=== PATIENT | male | born 1980 | race Hispanic/Latino ===

== ENCOUNTER 2018-09-15 09:43 | Emergency (ER) | payer SELFPAY ==
--- NOTE | 2018-09-15 10:34 | RAD REPORT ---
EXAM DESCRIPTION: RAD - Chest Single View - 09/15/2018 10:25 am CLINICAL HISTORY: Chest pain radiating to the left arm COMPARISON: None. TECHNIQUE: AP portable chest image was obtained 1017 hours . FINDINGS: Lungs are clear. Heart and vasculature are normal. No measurable pleural effusion and no p neumothorax. No acute bony abnormality seen. No acute aortic findings suspected. IMPRESSION: No acute cardiopulmonary process.
[2018-09-15 10:44] LABS: Absolute Lymphocytes (CBC) 1.7 K/uL (0.7-4.9); Basophils % 0.9 % (0-1.3); Eosinophils % 0.8 % (0-4.4); Hematocrit 51.9 % (39.6-49.0); Lymphocytes % 25.2 % (15.3-44.8); MPV 9.8 fL (7.6-11.3); Monocytes % 7.4 % (3.3-12.3); RBC Red Blood Cell Count 5.82 M/uL (4.33-5.43)
[2018-09-15 11:15] LABS: BUN Blood Urea Nitrogen 14 mg/dL (7-18); Bicarbonate 25 mmol/L (21-32); Glucose Level 106 mg/dL (74-106); NT PRO-BNP 17 pg/mL (<125); Potassium 3.7 mmol/L (3.5-5.1); Sodium Level 141 mmol/L (136-145); Troponin (Emerg Dept Use Only) < 0.02 ng/mL (0.0-0.045)
--- NOTE | 2018-09-15 11:34 | ER ---
Nurse's Notes [facility] Name: All Damico Age: 38 yrs Sex: Male : 1980 Arrival Date: 09/15/2018 Time: 09:47 Bed 4 Private MD: Ankit Carrizales Diagnosis: Chest pain, unspecified Presentation: 09/15 09:55 Presenting complaint: Patient states: intermittent anxiety and sharp chest pain that ss radiates towards L arm that began 3 days ago. Pt reports that this morning he began vomiting. Transition of care: patient was not received from another setting of care. Onset of symptoms was September 11, 2018. Risk Assessment: Do you want to hurt yourself or someone else? Patient reports no desire to harm self or others. Initial Sepsis Screen: Does the patient meet any 2 criteria? No. Patient's initial sepsis screen is negative. Does the patient have a suspected source of infection? No. Patient's initial sepsis screen is negative. Care prior to arrival: None. 09:55 Method Of Arrival: Ambulatory ss 09:55 Acuity: HANNAH 3 ss Historical: - Allergies: 09:59 No Known Allergies; ss - Home Meds: 09:59 None [Active]; ss - PMHx: 09:59 None; ss - PSHx: 09:59 None; ss - Immunization history:: Adult Immunizations up to date. - Social history:: Smoking status: Patient/guardian denies using tobacco. - Ebola Screening: : Patient denies exposure to infectious person Patient denies travel to an Ebola-affected area in the 21 days before illness onset. - Family history:: not pertinent. - Hospitalizations: : No recent hospitalization is reported. Screenin:05 Abuse screen: Denies threats or abuse. Denies injuries from another. Nutritional sg screening: No deficits noted. Tuberculosis screening: No symptoms or risk factors identified. Never had TB. Fall Risk None identified. Assessment: 10:05 Reassessment: Patient appears in no apparent distress at this time. General: Appears in sg no apparent distress. well groomed, well developed, well nourished, Behavior is calm, cooperative, appropriate for age. Pain: Complains of pain in chest Pain does not radiate. Quality of pain is described as aching. Neuro: Level of Consciousness is awake, alert, obeys commands, Oriented to person, place, time, situation, Estimator Binding are equal bilaterally Moves all extremities. Gait is steady, Speech is normal, Facial symmetry appears normal, Pupils are PERRLA. Cardiovascular: Patient's skin is warm and dry. Pulses are palpable in right radial artery and left radial artery Chest pain is denied. Cardiovascular: Reports chest pain, felt anxious. Respiratory: Airway is patent Respiratory effort is even, unlabored, Respiratory pattern is regular, symmetrical. GI: Abdomen is round non-distended, Reports tolerance of fluids, tolerance of food. : No signs and/or symptoms were reported regarding the genitourinary system. EENT: No signs and/or symptoms were reported regarding the EENT system. Derm: Skin is pink, warm \T\ dry. Musculoskeletal: No signs and/or symptoms reported regarding the musculoskeletal system. 10:53 Reassessment: Patient appears in no apparent distress at this time. Patient is alert, sg oriented x 3, equal unlabored respirations, skin warm/dry/pink. Patient states symptoms have not improved. Vital Signs: 09:59 BP 141 / 101; Pulse 78; Resp 18; Temp 97.8(TE); Pulse Ox 98% on R/A; Weight 97.52 kg; ss Height 6 ft. 2 in. (187.96 cm); Pain 6/10; 10:36 BP 132 / 93; Pulse 71; Resp 17; Pulse Ox 99% on R/A; sg 11:02 BP 120 / 85; Pulse 70; Resp 17; Pulse Ox 99% on R/A; sg 09:59 Body Mass Index 27.60 (97.52 kg, 187.96 cm) Vitals: 10:36 Cardiac Rhythm Assessment Regular Sinus rhythm. ED Course: 09:47 Patient arrived in ED. dl4 09:47 Ankit Carrizales MD is Private Physician. dl4 09:55 Quintin Morgan MD is Attending Physician. rn 09:59 Triage completed. ss 09:59 Arm band placed on right wrist. ss 10:05 Patient has correct armband on for positive identification. Bed in low position. Call sg light in reach. Side rails up X2. quality assurance monitor on. Pulse ox on. NIBP on. Warm blanket given. Head of bed elevated. 10:15 Romeo Escalante, RN is Primary Nurse. sg 10:18 X-ray completed. Portable x-ray completed in exam room. Patient tolerated procedure ml well. 10:28 XRAY Chest (1 view) In Process Unspecified. EDMS 10:30 No provider procedures requiring assistance completed. Initial lab(s) drawn, by me, sg sent to lab. Inserted saline lock: 20 gauge in left antecubital area, using aseptic technique. Blood collected. 11:45 IV discontinued, intact, bleeding controlled, No redness/swelling at site. Pressure sg dressing applied. Administered Medications: No medications were administered Outcome: 11:32 Discharge ordered by . rn 11:45 Discharged to home ambulatory, with family. sg 11:45 Condition: good 11:45 Discharge instructions given to patient, family, Instructed on discharge instructions, follow up and referral plans. medication usage, safety practices, Demonstrated understanding of instructions, follow-up care, Prescriptions given X 0 11:47 Patient left the ED. Signatures: Dispatcher [employer] EDMS Romeo Escalante RN Muriel England Roman, MD MD rn Smirch, Shelby, RN RN ss Luna, David dl4
--- NOTE | 2018-09-15 11:35 | EDPHYS ---
Physician Documentation [facility] Name: All Damico Age: 38 yrs Sex: Male : 1980 Arrival Date: 09/15/2018 Time: 09:47 Bed 4 Private MD: Ankit Carrizales ED Physician Quintin Morgan HPI: 09/15 10:18 This 38 yrs old Male presents to ER via Ambulatory with complaints of Chest rn Pain. 10:18 The patient or guardian reports chest pain that is located primarily in the substernal rn area. The pain does not radiate. Associated signs and symptoms: Pertinent positives: dizziness, headache, Pertinent negatives: abdominal pain, cough, recent travel, shortness of breath, syncope, vomiting. The chest pain is described as a heaviness. Duration: The patient or guardian reports multiple episodes, that are intermittent. Modifying factors: The symptoms are alleviated by nothing. the symptoms are aggravated by nothing. Severity of pain: At its worst the pain was mild in the emergency department the pain has improved. The patient has experienced similar episodes in the past. Reports for last week has been feeling chest pressure/heaviness, intermittent, non-radiating, feels heart throbbing, assoc with dizziness, headache, and fatigue. Reports told has high cholesterol in past, was supposed to f/u but didn't return, doesn't take meds. Had normal heart cath 4-5 years ago. Reports today began around 0600, now resolved. Feels anxious during episodes as well. . Historical: - Allergies: 09:59 No Known Allergies; ss - Home Meds: 09:59 None [Active]; ss - PMHx: 09:59 None; ss - PSHx: 09:59 None; ss - Immunization history:: Adult Immunizations up to date. - Social history:: Smoking status: Patient/guardian denies using tobacco. - Ebola Screening: : Patient denies exposure to infectious person Patient denies travel to an Ebola-affected area in the 21 days before illness onset. - Family history:: not pertinent. - Hospitalizations: : No recent hospitalization is reported. ROS: 10:18 Constitutional: Negative for fever, chills, and weight loss, Eyes: Negative for injury, rn pain, redness, and discharge, Neck: Negative for injury, pain, and swelling, Cardiovascular: Negative for edema, Respiratory: Negative for shortness of breath, cough, wheezing, and pleuritic chest pain, Abdomen/GI: Negative for abdominal pain, nausea, vomiting, diarrhea, and constipation, MS/Extremity: Negative for injury and deformity, Skin: Negative for injury, rash, and discoloration, Neuro: Negative for headache, weakness, numbness, tingling, and seizure. Exam: 10:18 Constitutional: This is a well developed, well nourished patient who is awake, alert, rn and in no acute distress. Head/Face: Normocephalic, atraumatic. Eyes: Pupils equal round and reactive to light, extra-ocular motions intact. Lids and lashes normal. Conjunctiva and sclera are non-icteric and not injected. Cornea within normal limits. Periorbital areas with no swelling, redness, or edema. Cardiovascular: Regular rate and rhythm with a normal S1 and S2. No gallops, murmurs, or rubs. Normal PMI, no JVD. No pulse deficits. Respiratory: Lungs have equal breath sounds bilaterally, clear to auscultation and percussion. No rales, rhonchi or wheezes noted. No increased work of breathing, no retractions or nasal flaring. Abdomen/GI: soft, non-tender MS/ Extremity: Pulses equal, no cyanosis. Neurovascular intact. Full, normal range of motion. Equal circumference. Neuro: Awake and alert, GCS 15, oriented to person, place, time, and situation. Cranial nerves II-XII grossly intact. Motor strength 5/5 in all extremities. Sensory grossly intact. Cerebellar exam normal. Vital Signs: 09:59 BP 141 / 101; Pulse 78; Resp 18; Temp 97.8(TE); Pulse Ox 98% on R/A; Weight 97.52 kg; ss Height 6 ft. 2 in. (187.96 cm); Pain 6/10; 10:36 BP 132 / 93; Pulse 71; Resp 17; Pulse Ox 99% on R/A; sg 11:02 BP 120 / 85; Pulse 70; Resp 17; Pulse Ox 99% on R/A; sg 09:59 Body Mass Index 27.60 (97.52 kg, 187.96 cm) ss MDM: 09:55 Patient medically screened. rn 11:31 Differential diagnosis: acute pericarditis, anxiety, coronary artery disease chest wall rn pain, costochondritis, esophagitis, gastritis, gastroesophageal reflux disease (GERD), pericarditis, pleurisy, pneumonia, pneumothorax, hypertension, hypertensive episodes. Data reviewed: vital signs, nurses notes, lab test result(s), EKG, radiologic studies, plain films. Test interpretation: by ED physician or midlevel provider: plain radiologic studies, CXR negative for acute infiltrate. Counseling: I had a detailed discussion with the patient and/or guardian regarding: the historical points, exam findings, and any diagnostic results supporting the discharge/admit diagnosis, lab results, radiology results, the need for outpatient follow up, to return to the emergency department if symptoms worsen or persist or if there are any questions or concerns that arise at home. Medical screen evaluation completed. [facility]. Response to treatment: the patient's condition has returned to base line, the patient is now symptom free, and as a result, I will discharge patient. Special discussion: Based on the patient's history, exam, and Dx evaluation, there is no indication for emergent intervention or inpatient Tx. It is understood by the patient/guardian that if the Sx's persist or worsen they need to return immediately for re-evaluation. I discussed with the patient/guardian in detail that at this point there is no indication for admission to the hospital. It is understood, however, that if the symptoms persist or worsen the patient needs to return immediately for re-evaluation. ED course: Will dc home, recommend close pcp f/u for repeat cholesterol testing and possible labs, recommended smoking cessation and BP diary. Trop and ecg normal, neg cxr, will dc home. Return precautions given and understood.. 11:33 Counseling: I had a detailed discussion with the patient and/or guardian regarding: rn smoking cessation. 11:33 Counseling: I had a detailed discussion with the patient and/or guardian regarding: the rn presence of at least one elevated blood pressure reading (>120/80) during this emergency department visit. Special discussion: I have referred the patient to see his PCP for further evaluation of high blood pressure. 09/15 10:03 Order name: Basic Metabolic Panel; Complete Time: 11:19 rn 09/15 10:03 Order name: CBC with Diff; Complete Time: 10:57 rn 09/15 10:03 Order name: NT PRO-BNP; Complete Time: 11:19 rn 09/15 10:03 Order name: Troponin (emerg Dept Use Only); Complete Time: 11:19 rn 09/15 10:03 Order name: XRAY Chest (1 view); Complete Time: 10:38 rn 09/15 10:03 Order name: EKG; Complete Time: 10:05 rn 09/15 10:03 Order name: Cardiac monitoring; Complete Time: 10:18 rn 09/15 10:03 Order name: EKG - Nurse/Tech; Complete Time: 10:17 rn 09/15 10:03 Order name: IV Saline Lock; Complete Time: 10:33 rn 09/15 10:03 Order name: Labs collected and sent; Complete Time: 10:16 rn 09/15 10:03 Order name: O2 Per Protocol; Complete Time: 10: rn 09/15 10:03 Order name: O2 Sat Monitoring; Complete Time: 10:16 rn Administered Medications: No medications were administered Disposition: 09/15/18 11:32 Discharged to Home. Impression: Chest pain, unspecified. - Condition is Stable. - Discharge Instructions: Nonspecific Chest Pain, Hypertension. - Medication Reconciliation Form, Thank You Letter, Antibiotic Education, Prescription Opioid Use, Family Work Release, Work release form form. - Follow up: Private Physician; When: As needed; Reason: Recheck today's complaints, Re-evaluation by your physician. - Problem is new. - Symptoms have improved. Signatures: Dispatcher [employer] EDMS Quintin Morgan MD MD rn Smirch, Shelby, RN RN ss Corrections: (The following items were deleted from the chart) 11:47 11:32 09/15/2018 11:32 Discharged to Home. Impression: Chest pain, unspecified. ss Condition is Stable. Forms are Medication Reconciliation Form, Thank You Letter, Antibiotic Education, Prescription Opioid Use. Follow up: Private Physician; When: As needed; Reason: Recheck today's complaints, Re-evaluation by your physician. Problem is new. Symptoms have improved. rn
--- NOTE | 2018-09-16 14:52 | EKG ---
Test Date: 2018-09-15 Test Time: 09:58:54 [employer] Operator: SWG MEASUREMENT RESULTS: Intervals: Rate: 78 [place]: 148 QRSD: 86 QT: 396 QTc: 451 [place]: P: 47 [place]: 148 QRS: 42 T: 33 INTERPRETIVE STATEMENTS: Normal sinus rhythm Normal ECG No previous ECG available for comparison Electronically Signed On 09-16-18 14:47:45 CDT by Oneil Duncan
== END 2018-09-15 11:47 | disposition home or self-care (01) ==
LOC: ER 09:43
DX: R07.9 Chest pain, unspecified (principal)
CPT/HCPCS: 36415; 71045; 80048; 83880; 84484; 85025; 93005; 99284